=== PATIENT | female | born 1970 ===

== ENCOUNTER 2016-10-17 19:48 | Emergency (ER) | payer OTHER ==
[2016-10-17 20:00] VITALS: BP 130/88; PULSE 86; RESP 16; TEMP 98.1; O2SAT 98
[2016-10-17] MEDS ORDERED: Oxycodone/Acetaminophen 5/325 mg Tab PO STA (20:15)
[2016-10-17] MEDS ORDERED: Oxycodone/Acetaminophen 5/325 mg Tab ONE (20:18)
--- NOTE | 2016-10-17 21:14 | C.PDOC ---
History Of Present Illness 46 yr old female presents to the ER for evaluation of right shoulder pain which started GREEN PLUMBER while at work. Patient states she was pulling heavy boxes and felt a pulling sensation with immediate pain. States the pain is localized over the shoulder and is unable to move the arm due to pain. Reports prior history of right humerous fracture, s/p ORIF. Denies chest pain, SOB, dyspnea, palpitation , denies weakness, sensory or vascular deficits to Right arm, no obvious deformity noted. Time Seen by Provider: 10/17/16 20:10 Chief Complaint (Nursing): Upper Extremity Problem/Injury History Per: Patient History/Exam Limitations: no limitations Onset/Duration Of Symptoms: Sudden Onset (GREEN PLUMBER) Past Medical History Reviewed: Historical Data, Nursing Documentation, Vital Signs Vital Signs: Last Vital Signs Temp 98.1 F 10/17/16 19:55 Pulse 86 10/17/16 19:55 Resp 16 10/17/16 19:55 BP 130/88 10/17/16 19:55 Pulse Ox 98 10/17/16 21:20 - Medical History PMH: Fractures (right humerus) Family History: States: No Known Family Hx - Social History Hx Alcohol Use: No Hx Substance Use: No - Immunization History Hx Tetanus Toxoid Vaccination: No Hx Influenza Vaccination: No Hx Pneumococcal Vaccination: No Review Of Systems Except As Marked, All Systems Reviewed And Found Negative. Cardiovascular: Negative for: Chest Pain Musculoskeletal: Positive for: Shoulder Pain (Right shoulder ). Negative for: Back Pain Neurological: Negative for: Weakness, Numbness Physical Exam - Physical Exam Appears: Well, Non-toxic, No Acute Distress Skin: Warm, Dry, No Rash Chest: Symmetrical, No Tenderness Cardiovascular: Rhythm Regular, No Murmur Respiratory: No Rales, No Rhonchi, No Stridor, No Wheezing Extremity: No Normal ROM (discomfort to Right shoulder abduction/extension due to pain.), Tenderness (Right Shoulder : Diffuse superior and anterior tenderness. ), Capillary Refill (<2), No Deformity, No Swelling Neurological/Psych: Oriented x3, Normal Speech, Normal Motor, Normal Sensation, Normal Reflexes ED Course And Treatment O2 Sat by Pulse Oximetry: 98 - Other Rad X-Ray - Right Shoulder X-Ray: Viewed By Me, Read By Radiologist Interpretation: EXAM: XR Right Shoulder Complete, 2 or More Views. CLINICAL HISTORY: 46 year old female with right shoulder pain. Recent injury. Previous surgery. TECHNIQUE: Two or more views of the right shoulder. EXAM DATE/TIME: 10/17/16 (8:16pm). COMPARISON: No relevant prior studies available. FINDINGS : No acute fracture nor dislocation. An intramedullary man traverses the right humerus. A small, focal soft tissue calcification is faintly seen at the superior margin of the right humeral head. (most likely degenerative in nature) . IMPRESSION: No acute traumatic pathology. Progress Note: On re-eavluation, pt is afebrile, hemodynamicaly stable. Non- toxic. RUE: exam c/w Right shoulder strain. Afer ED treatment able to extend Right shoulder to 40 degrees. NO neurovascular deficits. xray review, no acute findings noted. Sling, analgesics. Pt advised and ref. to F/u with Ortho in 2- 3 days for re-eavl. return if any new changes. Medical Decision Making Medical Decision Making: PLAN: * X-ray - Right Shoulder * Percocet PO Disposition Counseled Patient/Family Regarding: Studies Performed, Diagnosis, Need For Followup, Rx Given - Disposition Referrals: Melvin Cordero III, MD [Staff Provider] - Disposition: HOME/ ROUTINE Disposition Time: 21:12 Condition: STABLE Additional Instructions: Sling for 1 week light duty to Right arm for 1 week, avoid lifting arm, weight, et. Take pain medication as need Follow up with Orthopedist in 2-3 days for re-evaluation. Return t o ED if any worsening or new changes. Prescriptions: traMADol [Ultram] 50 mg PO TID #7 tab Instructions: Shoulder Sprain (ED) Forms: Work Excuse - Clinical Impression Clinical Impression: Shoulder sprain - PA / [employer] / Resident Statement MD/DO has reviewed & agrees with the documentation as recorded. - Scribe Statement The provider has reviewed the documentation as recorded by the Scribe Carola Orr All medical record entries made by the Scribe were at my direction and personally dictated by me. I have reviewed the chart and agree that the record accurately reflects my personal performance of the history, physical exam, medical decision making, and the department course for this patient. I have also personally directed, reviewed, and agree with the discharge instructions and disposition.
--- NOTE | 2016-10-18 13:47 | RAD ---
PROCEDURE: Radiographs of the Right Shoulder HISTORY: injury COMPARISON: No prior study available for comparison. FINDINGS: BONES: In situ intramedullary fixation man traversing the shaft of right humerus. Hardware is intact. No evidence of loosening or infection seen. No acute fractures. There is a tiny density seen within the soft tissues adjacent to the humeral head. JOINTS: Mild degenerative changes left acromioclavicular joint. . There is also a tiny calcific density within the soft tissues adjacent to the left superolateral humeral head greater tuberosity the which may represent some degenerative changes or calcific tendinitis. SOFT TISSUES: Normal. OTHER FINDINGS: None. IMPRESSION: Intramedullary fixation man left humerus. Hardware is intact. No acute fractures. Mild DJD as described.
== END 2016-10-17 21:23 | disposition home or self-care (01) ==
LOC: C.ER 19:48
DX: S43.401A Unspecified sprain of right shoulder joint, initial encounter (principal); X50.9XXA Other and unspecified overexertion or strenuous movements or postures, initial encounter; Y92.89 Other specified places as the place of occurrence of the external cause; Y99.0 Civilian activity done for income or pay